=== PATIENT | male | born 1985 | race Caucasian/White ===

== ENCOUNTER 2025-04-19 02:56 | Emergency (ER) | payer OTHER, BC ==
[2025-04-19] MEDS: Lidocaine 1% with EPINEPHrine 1:100,000 20 ML MDV INJECT ONE (03:23)
[2025-04-19] MEDS: Diphtheria,Pertussis(Acell),Tetanus Vaccine 0.5 ML Syringe IM ONE (03:23)
== END 2025-04-19 04:44 | disposition home or self-care (01) ==
LOC: DL.ED 02:56
DX: S01.511A Laceration without foreign body of lip, initial encounter (principal); F10.120 Alcohol abuse with intoxication, uncomplicated; Z79.899 Other long term (current) drug therapy; Z23 Encounter for immunization; V49.49XA Driver injured in collision with other motor vehicles in traffic accident, initial encounter; Y93.89 Activity, other specified; Y90.9 Presence of alcohol in blood, level not specified
CPT/HCPCS: 12013; 90471; 90715; 99282-25; 99283; J2004